=== PATIENT | male | born 1975 | race Caucasian/White ===

== ENCOUNTER 2020-07-16 18:14 | Emergency (ER) | payer BC, OTHER ==
[~2020-07-16 18:14] MED LIST: CIPRO500 MG PO; Cleocin150 MG PO; KEFLEX500 MG PO; LOTRIMIN AF1% TP; Lotrimin 1%15 GM T
[2020-07-16 19:24] LABS: BASO % 0.4 % (0.0-1.0); EOS # 0.2 10*3/uL (0.0-0.4); EOS % 1.5 % (1.0-4.0); HEMATOCRIT 42.5 % (42.0-52.0); LYMPH # 2.4 10*3/uL (1.3-4.4); LYMPH % 23.1 % (27.0-41.0); MEAN CELL VOLUME 83.7 fl (80.0-94.0); MEAN CORPUSCULAR HGB 29.1 pg (27.0-31.0); MEAN CORPUSCULAR HGB CONC 34.8 g/dl (33.0-37.0); MONO # 0.7 10*3/uL (0.1-1.0); MONO % 6.4 % (3.0-9.0); NEUT # 7.1 10*3/uL (2.3-7.9); NEUT % 67.9 % (47.0-73.0); PLATELET COUNT AUTOMATED 241 10*3/uL (130-400); RED BLOOD COUNT 5.08 10*6/uL (4.50-5.90); RED CELL DISTRI WIDTH 11.8 % (0-14.5); WHITE BLOOD COUNT 10.5 10*3/uL (4.8-10.8)
[2020-07-16 19:33] LABS: INTERNATIONAL NORM RATIO 0.9 (2.0-3.5)
[2020-07-16 19:45] LABS: ALBUMIN 3.9 gm/dl (3.1-4.5); ALKALINE PHOSPHATASE 103 U/L (45-117); BUN 12 mg/dl (7-24); CHLORIDE 102 mmol/L (98-107); CREATININE 0.92 mg/dL (0.70-1.30); LIPASE 284 U/L (73-393); SGOT/AST 28 IU/L (3-35); SGPT/ALT 51 U/L (12-78); SODIUM 133 mmol/L (136-145); TOTAL PROTEIN 7.4 gm/dL (6.4-8.2)
[2020-07-16 19:50] LABS: TROPONIN I < 0.015 ng/ml (<0.045)
[2020-07-16] MEDS ORDERED: ZOFRAN4 MG PO (21:22)
[2020-07-16] MEDS ORDERED: OMEPRAZOLE20 M2 PO (21:22)
== END 2020-07-16 21:30 | disposition home or self-care (01) ==
LOC: ED 18:14
PROVIDERS: Physician Assistant
DX: R10.13 Epigastric pain (principal); E11.9 Type 2 diabetes mellitus without complications; F17.200 Nicotine dependence, unspecified, uncomplicated

== ENCOUNTER → 2020-09-10 | Outpatient (CLI) | payer BC, OTHER ==
[~2020-09-10] MED LIST changes: +OMEPRAZOLE20 M2 PO; +ZOFRAN4 MG PO
[2020-09-10 16:34] LABS: BASO # 0.1 10*3/uL (0.0-0.1); BASO % 0.4 % (0.0-1.0); EOS # 0.2 10*3/uL (0.0-0.4); EOS % 1.3 % (1.0-4.0); HEMATOCRIT 46.9 % (42.0-52.0); LYMPH # 2.8 10*3/uL (1.3-4.4); LYMPH % 19.7 % (27.0-41.0); MEAN CELL VOLUME 86.9 fl (80.0-94.0); MEAN CORPUSCULAR HGB 28.9 pg (27.0-31.0); MEAN CORPUSCULAR HGB CONC 33.3 g/dl (33.0-37.0); MEAN PLATELET VOLUME 9.4 fl (9.6-12.3); MONO % 7.3 % (3.0-9.0); NEUT # 9.8 10*3/uL (2.3-7.9); PLATELET COUNT AUTOMATED 310 10*3/uL (130-400); RED CELL DISTRI WIDTH 12.5 % (0-14.5)
[2020-09-10 16:53] LABS: BODY FLUID WBC 3261 /uL
[2020-09-10 17:00] LABS: URIC ACID 6.7 mg/dL (3.5-7.2)
[2020-09-10 17:30] LABS: BF LYMPHOCYTES 4 %; BF MACROPHAGES 55 %; BF NEUTROPHILS 41 %
[2020-09-11 13:06] LABS: ACID FAST SPEC PROCESSING Direct Inoculation (.)
== END | disposition home or self-care (01) ==
LOC: LAB 15:55
PROVIDERS: ATTEND Orthopaedic Surgery
DX: M25.562 Pain in left knee (principal)